=== PATIENT | male | born 1955 | race American Indian/Alaskan Native ===

== ENCOUNTER 2016-05-19 14:19 | Emergency (ER) | payer OTHER, BC ==
[2016-05-19 14:24] VITALS: BP 148/90; PULSE 90; RESP 16; TEMP 96.7; O2SAT 97
--- NOTE | 2016-05-19 15:37 | ED PDOC ---
Lower Extremity Pain/Injury Time Seen by Provider: 05/19/16 14:34 Chief Complaint (Nursing): Lower Extremity Problem/Injury History Per: Patient History/Exam Limitations: no limitations Additional Complaint(s): 60-year-old male, presents to the emergency department with complaints of knee pain. Patient states he sustained an injury to the left knee while walking to work this morning. Patient states he tripped and fell, causing his knee to go into a pile of rocks. Patient denies numbness/weakness, nausea/vomiting, or any other associated symptoms. No other complaints at this time. Past Medical History Reviewed: Historical Data, Nursing Documentation, Vital Signs Vital Signs: Last Vital Signs Temp 96.7 F L 05/19/16 14:20 Pulse 90 05/19/16 14:20 Resp 16 05/19/16 14:20 BP 148/90 05/19/16 14:20 Pulse Ox 97 05/19/16 14:20 - Medical History PMH: Arthritis, Bronchitis - Family History Family History: States: Unknown Family Hx - Immunization History Hx Tetanus Toxoid Vaccination: No Hx Influenza Vaccination: No Hx Pneumococcal Vaccination: No - Home Medications Home Medications: Ambulatory Orders Medication Instructions Recorded Azithromycin [Zithromax] 250 mg PO DAILY #6 tab 05/02/16 Ibuprofen [Motrin] 600 mg PO TID #21 tab 05/02/16 Neomycin/Polymyxin/Hydrocortis 3 drop TOP TID #1 bottle 05/02/16 [Cortisporin Otic Susp] - Allergies Allergies/Adverse Reactions: Allergies Allergy/AdvReac Type Severity Reaction Status Date / Time No Known Allergies Allergy Verified 05/19/16 15:01 Review of Systems ROS Statement: Except As Marked, All Systems Reviewed And Found Negative Constitutional: Negative for: Fever, Chills Respiratory: Negative for: Cough, Shortness of Breath Gastrointestinal: Negative for: Vomiting Musculoskeletal: Positive for: Leg Pain. Negative for: Back Pain Skin: Negative for: Rash Neurological: Negative for: Weakness, Numbness Physical Exam - Reviewed Nursing Documentation Reviewed: Yes Vital Signs Reviewed: Yes - Physical Exam Appears: Positive for: Non-toxic, No Acute Distress Head Exam: Positive for: ATRAUMATIC, NORMOCEPHALIC Skin: Positive for: Warm, Dry. Negative for: Rash Eye Exam: Positive for: Normal appearance Neck: Positive for: Painless ROM Respiratory: Negative for: Accessory Muscle Use, Respiratory Distress Extremity: Positive for: Tenderness, Other (Left knee: mild tenderness to patella, superficial abrasion. Painful range of motion). Negative for: Deformity Neurologic/Psych: Positive for: Alert, Oriented - ECG O2 Sat by Pulse Oximetry: 97 Medical Decision Making Medical Decision Making: Plan * X-Ray Knee * Discharge No fracture of patella seen on x-ray. No work for 2 days. Follow-up as needed. Scribe Attestation: Documented by Marilynn Ayala, acting as a scribe for AVANI Hernandez. Provider Attestation: All medical record entries made by the Scribe were at my direction and personally dictated by me. I have reviewed the chart and agree that the record accurately reflects my personal performance of the history, physical exam, medical decision making, and the department course for this patient. I have also personally directed, reviewed, and agree with the discharge instructions and disposition. Disposition - Clinical Impression Clinical Impression: Knee contusion, Abrasion - Patient ED Disposition Is Patient to be Admitted: No Counseled Patient/Family Regarding: Diagnosis, Need For Followup - Disposition Referrals: Pelon Davidson III, MD [Staff Provider] - Disposition: Routine/Home Disposition Time: 16:06 Condition: GOOD Additional Instructions: Follow-up as needed with orthopedics. Keep clean and dry with antibiotic ointment Instructions: Abrasion (ED) Forms: [facility] ED School/Work Excuse
--- NOTE | 2016-05-19 15:46 | RAD ---
PROCEDURE: Left Knee Radiographs. HISTORY: COMPARISON: None available. FINDINGS: No acute displaced fracture or dislocation identified. Small suprapatellar joint effusion. Degenerative changes including osteophytes, tenting of the intercondylar notch, and medial compartment joint space narrowing. Soft tissues appear unremarkable. No evidence of radiopaque foreign body. IMPRESSION: Degenerative changes. Small suprapatellar joint effusion. No acute displaced fracture or dislocation identified. If high clinical index of suspicion for occult fracture, cross-sectional imaging may be considered. Otherwise, if symptoms persist or if there is continued clinical concern, x-ray follow-up in 7-10 days should be considered.
== END 2016-05-19 16:18 | disposition home or self-care (01) ==
LOC: H.ER 14:19
DX: S80.00XA Contusion of unspecified knee, initial encounter (principal); S80.212A Abrasion, left knee, initial encounter; W18.30XA Fall on same level, unspecified, initial encounter; Y93.9 Activity, unspecified; Y92.9 Unspecified place or not applicable

== ENCOUNTER 2016-10-24 10:47 | Emergency (ER) | payer OTHER, BC ==
[2016-10-24 11:04] VITALS: BMI 39.3
--- NOTE | 2016-10-24 11:17 | RAD ---
PROCEDURE: Radiographs of the Right Shoulder HISTORY: Shoulder injury COMPARISON: No prior. FINDINGS: BONES: Bone alignment and mineralization are normal. There is no acute fracture or bone destruction. JOINTS: There is mild degenerative osteoarthrosis in the acromioclavicular and glenohumeral joints. SOFT TISSUES: Normal. OTHER FINDINGS: None. IMPRESSION: No acute fracture or dislocation.
[2016-10-24 11:25] VITALS: RESP 19; O2SAT 98
--- NOTE | 2016-10-24 11:30 | ED PDOC ---
Upper Extremity Pain/Injury Time Seen by Provider: 10/24/16 10:55 Chief Complaint (Nursing): Upper Extremity Problem/Injury Chief Complaint (Provider): shoulder njury History Per: Patient (61 y/o male fell at work landing on right shoulder. Notes pain with movement. Denies any prior injury. Is right handed.) Past Medical History Reviewed: Historical Data, Nursing Documentation, Vital Signs Vital Signs: Last Vital Signs Temp 97 F L 10/24/16 11:18 Pulse 72 10/24/16 11:18 Resp 19 10/24/16 11:18 BP 152/87 H 10/24/16 11:18 Pulse Ox 98 10/24/16 11:18 - Medical History PMH: Arthritis, Bronchitis - Family History Family History: States: Unknown Family Hx - Immunization History Hx Tetanus Toxoid Vaccination: No Hx Influenza Vaccination: No Hx Pneumococcal Vaccination: No - Home Medications Home Medications: Ambulatory Orders Medication Instructions Recorded Azithromycin [Zithromax] 250 mg PO DAILY #6 tab 05/02/16 Ibuprofen [Motrin] 600 mg PO TID #21 tab 05/02/16 Neomycin/Polymyxin/Hydrocortis 3 drop TOP TID #1 bottle 05/02/16 [Cortisporin Otic Susp] Naproxen [Naprosyn Tab] 375 mg PO TID PRN #21 tab 10/24/16 - Allergies Allergies/Adverse Reactions: Allergies Allergy/AdvReac Type Severity Reaction Status Date / Time No Known Allergies Allergy Verified 05/19/16 15:01 Review of Systems ROS Statement: Except As Marked, All Systems Reviewed And Found Negative Musculoskeletal: Positive for: Shoulder Pain Physical Exam - Reviewed Nursing Documentation Reviewed: Yes Vital Signs Reviewed: Yes - Physical Exam Appears: Positive for: Well, Non-toxic, No Acute Distress Head Exam: Positive for: ATRAUMATIC, NORMAL INSPECTION, NORMOCEPHALIC Skin: Positive for: Normal Color, Warm, DRY Eye Exam: Positive for: EOMI, Normal appearance, PERRL ENT: Positive for: Normal ENT Inspection Neck: Positive for: Normal, Painless ROM Cardiovascular/Chest: Positive for: Regular Rate, Rhythm Respiratory: Positive for: CNT, Normal Breath Sounds Gastrointestinal/Abdominal: Positive for: Normal Exam, Bowel Sounds, Soft Back: Positive for: Normal Inspection Extremity: Positive for: Normal ROM, Other (no bony tenderness noted. Patient has FROM but expresses discomfort with movement.) Neurologic/Psych: Positive for: Alert, Oriented - ECG O2 Sat by Pulse Oximetry: 98 - Progress ED Course And Treament: xry of shoulder: nad Disposition - Clinical Impression Clinical Impression: Shoulder injury - Patient ED Disposition Is Patient to be Admitted: No - Disposition Referrals: [facility] [Outside] Disposition: Routine/Home Disposition Time: 11:27 Condition: FAIR Prescriptions: Naproxen [Naprosyn Tab] 375 mg PO TID PRN #21 tab PRN Reason: Pain, Moderate (4-7) Instructions: Shoulder Sprain (ED) Forms: [facility] ED School/Work Excuse
[2016-10-24 11:43] VITALS: BP 128/78; PULSE 78; TEMP 97.5
== END 2016-10-24 11:44 | disposition home or self-care (01) ==
LOC: H.ER 10:47
DX: S49.91XA Unspecified injury of right shoulder and upper arm, initial encounter (principal); W19.XXXA Unspecified fall, initial encounter; Y99.0 Civilian activity done for income or pay